=== PATIENT | female | born 1990 ===

== ENCOUNTER 2020-04-29 18:46 | Inpatient (IN) ==
[~2020-04-29 18:46] MED LIST: *HR* FentaNYL (PF) 100 MCG/2 ML VIAL IVP PRN; Azithromycin 500 MG in 0.9 % Sodium Chloride 250 ML IVPB ONE; Famotidine 20 MG/2 ML VIAL IVP PRN; Lidocaine 1% 20 ML MDV ID PRN; Metoclopramide 10 MG/2 ML VIAL IVP PRN; Naloxone 0.4 MG/ML INJ IVP PRN; Ondansetron 4 MG/2 ML VIAL IVP PRN
[2020-04-29] MEDS ORDERED: miSOPROStoL 25 MCG TABLET VG ONE ×2 (18:51→21:48)
[2020-04-29] MEDS ORDERED: miSOPROStoL 100 MCG TABLET VG ONE (19:15)
[2020-04-29 19:32] LABS: Basophils % 0.2 %; Eosinophils # 0.3 K/mcL (0.0-0.6); Eosinophils % 3.5 %; Hemoglobin 11.8 g/dL (11.5-15.4); Immature Granulocytes % 0.3 % (0-4); Lymphocytes # 1.9 K/mcL (0.6-4.6); Lymphocytes % 20.4 %; Mean Corpuscular HGB Conc 34.7 g/dL (31.6-35.5); Mean Corpuscular Hemoglobin 30.2 pg (28.0-33.3); Mean Platelet Volume 10.9 fL (9.4-12.4); Monocytes # 0.5 K/mcL (0.0-1.3); Monocytes % 5.4 %; Neutrophils # 6.6 K/mcL (1.6-8.9); Platelet Count 201 K/mcL (140-400); Red Blood Count 3.91 M/mcL (3.82-4.97); Red Cell Distribution Width 13.6 % (11.5-14.5); Segmented Neutrophils % 70.2 %; White Blood Count 9.4 K/mcL (4.3-11.1)
[2020-04-29 19:41] LABS: Amphetamine Screen,Urine Negative ng/mL (Cutoff=1000); Barbiturate Screen,Urine Negative ng/mL (Cutoff=200); Benzodiazepines Screen,Urine Negative ng/mL (Cutoff=200); Cannabinoid Screen,Urine Negative ng/mL (Cutoff = 50); Cocaine Screen,Urine Negative ng/mL (Cutoff= 300); Opiate Screen,Urine Negative ng/mL (Cutoff=300); Phencyclidine Screen,Urine Negative ng/mL (Cutoff=25)
[2020-04-29] MEDS: miSOPROStoL 100 MCG TABLET VG ONE (22:51)
[2020-04-29] MEDS: Ringers Solution, Lactated 1,000 ML IVC SCH (22:52)
[2020-04-30] MEDS ORDERED: EPHEDrine 50 MG/ML VIAL IVP PRN (00:23)
[2020-04-30] MEDS ORDERED: Bupivacaine-MPF 0.25% 10 ML VIAL EP ONE (00:23)
[2020-04-30] MEDS ORDERED: *HR* FentaNYL (PF) 100 MCG/2 ML VIAL EP ONE (00:23)
[2020-04-30] MEDS ORDERED: *HR* FentaNYL (PF) 100 MCG/2 ML VIAL ONE ×2 (00:25→13:39)
[2020-04-30] MEDS ORDERED: Bupivacaine-MPF 0.25% 10 ML VIAL ONE (00:25)
[2020-04-30] MEDS: Epidural Premix (fent/bupiv) 110 ML EP SCH ×2 (00:51→08:06)
[2020-04-30] MEDS: Ringers Solution, Lactated 1,000 ML IVC SCH ×3 (00:52→16:17)
[2020-04-30] MEDS: miSOPROStoL 100 MCG TABLET VG PRN ×2 (01:48→04:58)
[2020-04-30] MEDS: miSOPROStoL 100 MCG TABLET VG ONE (07:55)
[2020-04-30] MEDS ORDERED: *HR* Midazolam HCl 2 MG/2 ML VIAL ONE (13:39)
[2020-04-30] MEDS ORDERED: Dexamethasone 4 MG/ML VIAL ONE (13:39)
[2020-04-30] MEDS ORDERED: Ondansetron 4 MG/2 ML VIAL ONE (13:39)
[2020-04-30] MEDS ORDERED: *HR* Propofol 200 MG/20 ML VIAL IVP ONE (13:40)
[2020-04-30] MEDS ORDERED: Lidocaine -MPF 2% 5 ML VIAL ONE (13:41)
[2020-04-30] MEDS ORDERED: Ketorolac 30 MG/ML VIAL ONE (14:13)
[2020-04-30] MEDS ORDERED: Ibuprofen 800 MG TABLET PO PRN (14:19)
[2020-04-30 16:16] LABS: Basophils % 0.3 %; Eosinophils # 0.1 K/mcL (0.0-0.6); Eosinophils % 1.3 %; Hematocrit 29.4 % (35.3-44.9); Immature Granulocytes % 0.3 % (0-4); Lymphocytes % 9.4 %; Mean Corpuscular Hemoglobin 28.9 pg (28.0-33.3); Mean Corpuscular Volume 87.5 fL (83.0-100.0); Mean Platelet Volume 11.1 fL (9.4-12.4); Monocytes # 0.3 K/mcL (0.0-1.3); Monocytes % 3.1 %; Neutrophils # 9.4 K/mcL (1.6-8.9); Platelet Count 170 K/mcL (140-400); Red Blood Count 3.36 M/mcL (3.82-4.97); Red Cell Distribution Width 13.3 % (11.5-14.5); Segmented Neutrophils % 85.6 %
[2020-04-30 16:17] LABS: Hemoglobin 9.7 g/dL (11.5-15.4)
== END 2020-04-30 19:25 | disposition home or self-care (01) | DRG 543 ==
LOC: 1NENULAB
PROVIDERS: ADMIT Student in an Organized Health Care Education/Training Program; ATTEND Student in an Organized Health Care Education/Training Program